=== PATIENT | female | born 1980 | race Two or more races ===

== ENCOUNTER 2017-05-03 10:37 | Outpatient (CLI) | payer OTHER ==
[2017-05-03 11:39] LABS: *BILIRUBIN,URIN NEGATIVE (NEGATIVE); *BLOOD, URINE 2+ (NEGATIVE); *CLARITY,URINE CLEAR (CLEAR); *COLOR,URINE YELLOW (YELLOW); *KETONES,URINE NEGATIVE (NEGATIVE); *PROTEIN,URINE NEGATIVE (NEGATIVE); *UROBILINOGEN,URINE 0.2 E.U./dl (NORMAL); LEUKOCYTE ESTERASE ,URINE 1+ (NEGATIVE); NITRITE, URINE NEGATIVE (NEGATIVE); UGLUCOSE TRACE (NEGATIVE)
[2017-05-03 11:46] LABS: BASOPHILS # (AUTO) 0.1 K/uL (0.0-8.0); BASOPHILS % (AUTO) 0.6 % (0.0-2.0); EOSINOPHILS # (AUTO) 0.1 K/uL (0.0-0.7); EOSINOPHILS % (AUTO) 1.3 % (0.0-7.0); HEMATOCRIT 40.4 % (37-47); HEMOGLOBIN 13.4 G/DL (12.0-16.0); LYMPHOCYTES # (AUTO) 2.8 K/UL (0.8-4.8); LYMPHOCYTES % (AUTO) 31.8 % (20.5-51.5); MEAN CORPUSCULAR HEMOGLOBIN 30.5 UUG (27.0-31.0); MEAN CORPUSCULAR HGB CONC 33 g/dL (32.0-37.0); MEAN CORPUSCULAR VOLUME 91.5 FL (81.0-99.0); MONOCYTES # (AUTO) 0.6 K/UL (0.1-1.30); MONOCYTES % (AUTO) 6.9 % (0.0-11.0); NEUTROPHILS # (AUTO) 5.3 K/UL (1.8-8.9); NEUTROPHILS % (AUTO) 59.4 % (38.5-71.5); PLATELET COUNT (AUTO) 344 K/UL (150-450); RED BLOOD CELL COUNT(AUTO) 4.41 MIL/UL (4.2-5.4); WHITE BLOOD COUNT (AUTO) 8.9 K/UL (4.0-11.2)
[2017-05-03 11:56] LABS: BILIRUBIN,TOTAL 0.7 mg/dL (0.2-1.0); CREATININE 0.7 mg/dL (0.6-1.3); POTASSIUM 3.9 mmol/L (3.5-5.1); TOTAL PROTEIN, SERUM 7.6 g/dL (6.4-8.2)
[2017-05-03 12:18] LABS: BACTERIA,URINE FEW /HPF (NONE SEEN)
[2017-05-03 12:19] LABS: SQUAMOUS EPITHELIAL CELL,UR MODERATE /HPF (NONE SEEN)
== END 2017-05-03 23:59 | disposition home or self-care (01) ==
LOC: LAB 10:37
PROVIDERS: ATTEND Internal Medicine
DX: Z01.818 Encounter for other preprocedural examination (principal); G56.03 Carpal tunnel syndrome, bilateral upper limbs; R73.9 Hyperglycemia, unspecified; G89.29 Other chronic pain
CPT/HCPCS: 36415; 85025; 85730

== ENCOUNTER 2017-05-06 07:00 | Day surgery (SDC) | payer OTHER ==
[2017-05-06] MEDS ORDERED: PROPOFOL 200 MG/20 ML BOTTLE IV ONE (07:01)
[2017-05-06] MEDS ORDERED: CEFAZOLIN 1 G VIAL MC ONE (07:01)
[2017-05-06] MEDS ORDERED: ONDANSETRON 4 MG/2 ML VIAL IV ONE (07:01)
[2017-05-06] MEDS ORDERED: IV LACTATED RINGERS SOLUTION 1,000 ML BAG IV ONE (07:01)
[2017-05-06] MEDS ORDERED: KETOROLAC TROMETHAMINE 30 MG INJ IM ONE (07:01)
[2017-05-06] MEDS ORDERED: DEXAMETHASONE SOD PHOSPHATE 4 MG INJ IV ONE (07:01)
[2017-05-06] MEDS ORDERED: SEVOFLURANE 250 ML BOTTLE IH ONE (07:01)
[2017-05-06] MEDS ORDERED: LIDOCAINE HCL 1% 20 ML VIAL MC ONE (07:01)
[2017-05-06 08:00] LABS: *URINE HCG, QUAL NEGATIVE (NEGATIVE)
[2017-05-06] MEDS ORDERED: POLYMYXIN B SULFATE 500,000 UNITS, BACITRACIN 50,000 UNITS, NORMAL SALINE 20 ML MC ONE ×3 (08:00)
[2017-05-06] MEDS ORDERED: BUPIVACAINE PF 0.5% 30 ML VIAL ONE (08:03)
[2017-05-06] MEDS ORDERED: FENTANYL CITRATE 100 MCG/2 ML AMPUL ONE (09:58)
[2017-05-06] MEDS ORDERED: MIDAZOLAM HCL 2 MG/2 ML VIAL ONE (09:58)
[2017-05-06] MEDS ORDERED: HYDROCODONE/APAP 5-325MG TABLET ONE (12:02)
== END 2017-05-06 12:41 | disposition home or self-care (01) ==
LOC: DS 07:00
PROVIDERS: ATTEND Orthopaedic Surgery
DX: G56.03 Carpal tunnel syndrome, bilateral upper limbs (principal); F41.9 Anxiety disorder, unspecified
CPT/HCPCS: 64721; 84703; A4649; A4663; J0690; J1100; J1885; J2250; J2405; J3010; J3490 ×5; J7120 ×2

== ENCOUNTER 2017-11-18 08:37 | Day surgery (SDC) | payer OTHER ==
[2017-11-18] MEDS ORDERED: ONDANSETRON 4 MG/2 ML VIAL IV ONE (08:38)
[2017-11-18] MEDS ORDERED: SEVOFLURANE 250 ML BOTTLE IH ONE (08:38)
[2017-11-18] MEDS ORDERED: LIDOCAINE-MPF 2% 5 ML VIAL MC ONE (08:38)
[2017-11-18] MEDS ORDERED: PROPOFOL 200 MG/20 ML BOTTLE IV ONE (08:38)
[2017-11-18 09:07] LABS: BASOPHILS # (AUTO) 0.1 K/uL (0.0-8.0); BASOPHILS % (AUTO) 1.3 % (0.0-2.0); EOSINOPHILS # (AUTO) 0.1 K/uL (0.0-0.7); EOSINOPHILS % (AUTO) 1.4 % (0.0-7.0); HEMATOCRIT 41.1 % (31.2-41.9); HEMOGLOBIN 14.2 g/dL (10.9-14.3); LYMPHOCYTES # (AUTO) 2.8 K/uL (20.0-40.0); LYMPHOCYTES % (AUTO) 34.5 % (20.5-51.5); MEAN CORPUSCULAR HEMOGLOBIN 31.4 uug (24.7-32.8); MEAN CORPUSCULAR HGB CONC 35 g/dL (32.3-35.6); MEAN CORPUSCULAR VOLUME 90.7 fL (75.5-95.3); MONOCYTES # (AUTO) 0.6 K/uL (2.0-10.0); MONOCYTES % (AUTO) 7.4 % (0.0-11.0); NEUTROPHILS # (AUTO) 4.5 K/uL (1.8-8.9); NEUTROPHILS % (AUTO) 55.4 % (38.5-71.5); PLATELET COUNT (AUTO) 320 K/uL (179-408); RED BLOOD CELL COUNT(AUTO) 4.53 MIL/uL (3.63-4.92); WHITE BLOOD COUNT (AUTO) 8.1 K/uL (3.8-11.8)
[2017-11-18 09:08] LABS: *BILIRUBIN,URIN NEGATIVE (NEGATIVE); *BLOOD, URINE 2+ (NEGATIVE); *CLARITY,URINE CLEAR (CLEAR); *COLOR,URINE YELLOW (YELLOW); *KETONES,URINE NEGATIVE (NEGATIVE); *PROTEIN,URINE NEGATIVE (NEGATIVE); *UROBILINOGEN,URINE 0.2 E.U./dl (NORMAL); LEUKOCYTE ESTERASE ,URINE TRACE (NEGATIVE); NITRITE, URINE NEGATIVE (NEGATIVE); UGLUCOSE NEGATIVE (NEGATIVE)
[2017-11-18 09:10] LABS: *URINE HCG, QUAL NEGATIVE (NEGATIVE)
[2017-11-18 09:13] LABS: CREATININE 0.8 mg/dL (0.6-1.3); POTASSIUM 3.9 mmol/L (3.5-5.1)
[2017-11-18 09:14] LABS: BACTERIA,URINE FEW /HPF (NONE SEEN); RBC,URINE 20-50 /HPF (0-3); SQUAMOUS EPITHELIAL CELL,UR MODERATE /HPF (NONE SEEN); WBC,URINE 0-3 /HPF (0-3)
[2017-11-18] MEDS ORDERED: BUPIVACAINE PF 0.5% 30 ML VIAL ONE (09:15)
[2017-11-18] MEDS ORDERED: POLYMYXIN B SULFATE 500,000 UNITS, BACITRACIN 50,000 UNITS, NORMAL SALINE 20 ML MC ONE ×3 (09:30)
[2017-11-18] MEDS ORDERED: FENTANYL CITRATE 100 MCG/2 ML AMPUL ONE (10:34)
[2017-11-18] MEDS ORDERED: MIDAZOLAM HCL 2 MG/2 ML VIAL ONE (10:35)
[2017-11-18] MEDS ORDERED: TRAMADOL HCL 50 MG TABLET ONE (12:41)
== END 2017-11-18 13:30 | disposition home or self-care (01) ==
LOC: DS 08:37
PROVIDERS: ATTEND Orthopaedic Surgery
DX: G56.02 Carpal tunnel syndrome, left upper limb (principal)
CPT/HCPCS: 36415; 64721; 80048; 81001; 84703; 85025; 85730; A4649; A4663; J2250; J2405; J3010; J3490 ×5